=== PATIENT | female | born 1945 | race Caucasian/White ===

== ENCOUNTER 2017-07-22 11:51 | Inpatient (IN) | payer MEDICARE ==
[~2017-07-22] VITALS: Ht 160 cm; Wt 78.4 kg
[2017-07-22 11:57] VITALS: BP 147/85; PULSE 68; RESP 18; TEMP 98.5; O2SAT 100
[2017-07-22] MEDS ORDERED: SODIUM CHLOR 0.9% 1000 ML INJ 1,000 ML IV ONE (12:00)
[2017-07-22] MEDS ORDERED: SODIUM CHLORIDE 0.9% FLUSH 10 ML FLUSH IV FLUSH PRN ×2 (12:00→15:30)
[2017-07-22] MEDS ORDERED: PROZ20CA11 PO (12:00)
[2017-07-22] MEDS ORDERED: HYDR25TA5 PO (12:08)
[2017-07-22] MEDS ORDERED: METF500T PO (12:08)
[2017-07-22] MEDS ORDERED: IBUP-1129 PO (12:08)
[2017-07-22] MEDS ORDERED: MULTTAB67 PO (12:08)
[2017-07-22] MEDS ORDERED: PRAV20TA2 PO (12:20)
[2017-07-22] MEDS ORDERED: TRAZ100T10 PO (12:20)
[2017-07-22 12:39] LABS: AUTOMATED NEUTROPHIL # 3.5 TH/MM3 (1.8-7.7); BASOPHIL % 0.9 % (0.0-2.0); EOSINOPHIL # 0.1 TH/MM3 (0-0.4); EOSINOPHIL % 2.6 % (0.0-4.0); HEMATOCRIT 34.5 % (35.0-46.0); HEMO FLAGS DIFF FINAL; LYMPHOCYTE # 0.9 TH/MM3 (1.0-4.8); MEAN CELL VOLUME 79.4 FL (80.0-100.0); MEAN CORPUSCULAR HEMOGLOBIN 25.4 PG (27.0-34.0); MONO % 5.3 % (0.0-8.0); NEUT % 71.2 % (16.0-70.0); PLATELET COUNT 194 TH/MM3 (150-450); RED BLOOD COUNT 4.34 MIL/MM3 (4.00-5.30); RED CELL DISTRIBUTION WIDTH 12.6 % (11.6-17.2); WHITE BLOOD COUNT 4.7 TH/MM3 (4.0-11.0)
[2017-07-22 12:46] LABS: CHLORIDE 103 MEQ/L (98-107); POTASSIUM 3.3 MEQ/L (3.5-5.1); SODIUM (NA) 138 MEQ/L (136-145)
[2017-07-22 12:50] LABS: ANION GAP 8 MEQ/L (5-15); BICARBONATE 27.1 MEQ/L (21.0-32.0); BLOOD UREA NITROGEN 25 MG/DL (7-18)
[2017-07-22 12:52] LABS: APTT (PATIENT) 22.4 SEC (24.3-30.1); PROTHROMBIN TIME - PATIENT 10.6 SEC (9.8-11.6)
[2017-07-22 12:53] LABS: ALCOHOL LESS THAN 3 MG/DL (0-5); ALT (GPT) 22 U/L (10-53); AST (GOT) 25 U/L (15-37); GLOMERULAR FILTRATION RATE 37 ML/MIN (>89)
[2017-07-22 12:55] LABS: TOTAL BILIRUBIN ADULT 0.3 MG/DL (0.2-1.0)
[2017-07-22 12:56] LABS: ALKALINE PHOSPHATASE 69 U/L (45-117)
--- NOTE | 2017-07-22 12:56 | RADRPT ---
EXAM DATE/TIME: 07/22/2017 12:34 [facility] COMPARISON: No previous studies available for comparison. INDICATIONS : Fall. RADIATION DOSE: 58.57 CTDIvol (mGy) MEDICAL HISTORY : Hypertension. SURGICAL HISTORY : Cholecystectomy. Appendectomy.Colon resection.Breast reduction ENCOUNTER: Initial ACUITY: 1 day PAIN SCALE: 5/10 LOCATION: cranial TECHNIQUE: Multiple contiguous axial images were obtained of the head. Using automated exposure control and adj ustment of the mA and/or kV according to patient size, radiation dose was kept as low as reasonably a chievable to obtain optimal diagnostic quality images. DICOM format image data is available electro nically for review and comparison. FINDINGS: Mild diffuse cerebral atrophy is noted. There is a left posterior parietal parafalcine calcified extr a-axial mass measuring 1.8 x 0.9 cm consistent with probable calcified meningioma. No acute infarct, acute hemorrhage, midline shift or extra-axial fluid collections are noted. Minimal periventricular w bianca matter small vessel ischemic changes are noted bilaterally. Minimal mucosal thickening is noted within the maxillary sinuses bilaterally. No skull fracture is noted. CONCLUSION: 1. No acute infarct, acute hemorrhage, midline shift or extra-axial fluid collections. 2. Minimal periventricular white matter small vessel ischemic changes bilaterally. 3. Mild cerebral atrophy. 4. Left posterior parietal parafalcine calcified extra-axial mass is a 1.8 x 0.9 cm consistent with p robable calcified meningioma. 5. Minimal mucosal thickening within the maxillary sinuses bilaterally. Moises Bee MD on July 22, 2017 at 12:50 Board Certified Radiologist. This report was verified electronically.
--- NOTE | 2017-07-22 13:13 | RADRPT ---
EXAM DATE/TIME: 07/22/2017 12:34 [facility] COMPARISON: No previous studies available for comparison. INDICATIONS : Fall. RADIATION DOSE: 25.81 CTDIvol (mGy) MEDICAL HISTORY : Hypertension. SURGICAL HISTORY : Appendectomy. Cholecystectomy.Colon resection.Breast reduction, recent elbow surgery for fx ENCOUNTER: Initial ACUITY: 1 day PAIN SCALE: 4/10 LOCATION: neck TECHNIQUE: Volumetric scanning of the cervical spine was performed. Multiplanar reconstructions in the sagittal, coronal and oblique axial planes were performed. Using automated exposure control and adjustment o f the mA and/or kV according to patient size, radiation dose was kept as low as reasonably achievable to obtain optimal diagnostic quality images. DICOM format image data is available electronically f or review and comparison. FINDINGS: There is no acute fracture or prevertebral soft tissue swelling. Cervical spondylosis is noted from C 3-T1 and is most significant at C6-7. Mild spinal stenosis is noted at C6-7. Moderate bilateral fabiana inal narrowing is noted at C6-7 and C5-6. Moderate left foraminal narrowing and mild right neuroforam inal narrowing is noted at C3-4. Mild bilateral foraminal narrowing is noted at C4-5. The bony relati onship and alignment between C1 and C2 is well maintained. CONCLUSION: 1. No acute fracture or prevertebral soft tissue swelling. 2. Mild spinal stenosis and moderate bilateral foraminal narrowing at C6-7. 3. Moderate foraminal narrowing at C5-6, moderate left neural foraminal narrowing and mild right neur al foraminal narrowing at C3-4, and mild bilateral foraminal narrowing at C4-5. 4. Diffuse cervical spondylosis as described above. Moises Bee MD on July 22, 2017 at 13:04 Board Certified Radiologist. This report was verified electronically.
[2017-07-22 13:18] VITALS: BP 135/73; PULSE 68; RESP 18; O2SAT 98
--- NOTE | 2017-07-22 13:19 | RADRPT ---
EXAM DATE/TIME: 07/22/2017 12:46 [facility] COMPARISON: No previous studies available for comparison. INDICATIONS : Fell this am, pain and swelling right ankle MEDICAL HISTORY : Hypertension. SURGICAL HISTORY : Appendectomy. Cholecystectomy. Colon resection. elbow ENCOUNTER: Initial ACUITY: 1 day PAIN SCORE: 5/10 LOCATION: Right ankle FINDINGS: There is an oblique lateral malleolar fracture with subtle lateral displacement of the distal fragmen t. Talar dome is intact. Remaining osseous structures are intact. There is soft tissue swelling about the ankle. CONCLUSION: 1. Minimally displaced lateral malleolar fracture. Marco A Aguila MD on July 22, 2017 at 13:16 Board Certified Radiologist. This report was verified electronically.
--- NOTE | 2017-07-22 13:21 | RADRPT ---
EXAM DATE/TIME: 07/22/2017 12:49 [facility] COMPARISON: No previous studies available for comparison. INDICATIONS : Fell this am. has pain and swelling left ankle MEDICAL HISTORY : Hypertension. SURGICAL HISTORY : Colon resection. Cholecystectomy. Appendectomy. elbow ENCOUNTER: Initial ACUITY: 1 day PAIN SCORE: 5/10 LOCATION: Left ankle FINDINGS: There is a nondisplaced vertically oriented medial malleolar fracture extends to the articular surfac e. Talar dome is intact. Remaining osseous structures are intact. There is soft tissue swelling about the ankle. CONCLUSION: 1. Nondisplaced medial malleolar fracture, as above. Marco A Aguila MD on July 22, 2017 at 13:17 Board Certified Radiologist. This report was verified electronically.
[2017-07-22 13:40] LABS: BLOOD, URINE NEG (NEG); GLUCOSE,URINE NEG (NEG); KETONE, URINE NEG (NEG); NITRITE,URINE NEG (NEG); PH, URINE 5.5 (5.0-8.5)
[2017-07-22 13:43] LABS: METHOD OF COLLECTION CATH; URINE COLOR STRAW (YELLW/STRAW)
[2017-07-22] MEDS ORDERED: BACL10TA PO (13:45)
[2017-07-22 13:46] LABS: COMMENT (UR) CATH-CULT NOT IND; COMMENT2 (UR) MUCOUS PRESENT; CULTURE IF INDICATED CATH CULTURE NOT IND; SQUAMOUS EPITHELIAL CELL URINE 0-5 /hpf (0-5); TRANSITIONAL EPI CELLS, URINE 0-5 /hpf; WBC, URINE 0-2 /hpf (0-5)
--- NOTE | 2017-07-22 14:13 | RADRPT ---
EXAM DATE/TIME: 07/22/2017 14:00 [facility] COMPARISON: No previous studies available for comparison. INDICATIONS : Fell this am, left foot pain, swelling MEDICAL HISTORY : Hypertension. SURGICAL HISTORY : Appendectomy. Colon resection. Cholecystectomy. ENCOUNTER: Initial ACUITY: 1 day PAIN SCORE: 5/10 LOCATION: Left foot FINDINGS: Slightly comminuted mildly displaced fractures of the fourth and fifth mid to distal metatarsals with out apparent intra-articular extension. There is some angulation of the distal fourth metatarsal frag ment. Remaining osseous structures appear intact. Joint spaces are maintained. Soft tissue prominence overlying the forefoot region. CONCLUSION: 1. Comminuted mildly displaced fractures of the fourth and fifth metatarsals, as above. Marco A Aguila MD on July 22, 2017 at 14:10 Board Certified Radiologist. This report was verified electronically.
--- NOTE | 2017-07-22 14:16 | PD ---
HPI Chief Complaint: Altered Mental Status Time Seen by Provider: 11:55 Travel History International Travel<30 days: No Contact w/Intl Traveler<30days: No Traveled to known affect area: No History of Present Illness HPI Patient is a 72-year-old female presents emergency department after a fall at home. The patient has apparently been falling fairly frequently, 2 weeks ago she fell in [place] injuring her right elbow, this required operative intervention and she is in a brace this time, her states that when she got up to go to the bathroom today he is not clear if she slipped or if she was weak and her legs gave out on him up on the floor. The patient also complaining of some left ankle swelling, she states she thinks this happened during the fall, she is mildly confused acting almost as if intoxicated. Her states that she's also been having some tremors which he describes as almost clonic jerks. He states she has no history of dementia has been alert and awake and oriented nearly normal mental status since then. However after he spent some time in the room he also concurs that she is acting almost intoxicated. No fevers no cough no congestion no chest pain back pain abdominal pain. She has had Dr. Jimenez following her in [place]. [facility] Past Medical History Diabetes: Yes Patient Takes Glucophage: Yes Diminished Hearing: No Hypertension: Yes Influenza Vaccination: Yes ?: Not Past Surgical History Abdominal Surgery: Yes (COLON RESECTION) Appendectomy: Yes Cholecystectomy: Yes Hysterectomy: Yes Tonsillectomy: Yes Other Surgery: Yes (BREAST REDUCTION) Social History Alcohol Use: Yes Tobacco Use: No Allergies-Medications (Allergen,Severity, Reaction): Coded Allergies: lisinopril (Verified Allergy, Severe, SWELLING, 07/22/17) Reported Meds & Prescriptions Reported Meds & Active Scripts Active Reported Baclofen 10 Mg Tab 10 Mg PO HS Pravastatin 20 Mg Tab 20 Mg PO DAILY Trazodone (Trazodone HCl) 100 Mg Tablet 100 Mg PO HS Multiple Vitamin 1 Tab 1 Tab PO DAILY Motrin Ib (Ibuprofen) 200 Mg Tablet 600 Mg PO DIRECTED Hydrochlorothiazide 25 Mg Tab 25 Mg PO DAILY Metformin (Metformin HCl) 500 Mg Tab 500 Mg PO BIDPC Prozac (Fluoxetine HCl) 20 Mg Cap 20 Mg PO DAILY Review of Systems Except as stated in HPI: all other systems reviewed are Neg Physical Exam Narrative GENERAL: Well-developed well-nourished no obvious distress, acting almost intoxicated with mild confusion. She is alert and awake and oriented. SKIN: Focused skin assessment warm/dry. HEAD: Atraumatic. Normocephalic. EYES: Pupils equal and round. No scleral icterus. No injection or drainage. ENT: No nasal bleeding or discharge. Mucous membranes pink and dry. NECK: Trachea midline. No JVD. CARDIOVASCULAR: Regular rate and rhythm. No murmur appreciated. RESPIRATORY: No accessory muscle use. Clear to auscultation. Breath sounds equal bilaterally. GASTROINTESTINAL: Abdomen soft, non-tender, nondistended. Hepatic and splenic margins not palpable. MUSCULOSKELETAL: No obvious deformities. No midline CT or L-spine tenderness, there is bruising and swelling of the lateral malleolus of the left ankle. Mildly tender to palpation over the medial malleolus however. There is also some swelling and some healing bruising to the lateral malleolus of the right ankle. Her right upper extremity has a dorsal surgical scar probably 20 cm long starting over the humerus over the elbow and down into the forearm, clean dry and intact. She is also in a brace this extremity. NEUROLOGICAL: Awake and alert. No obvious cranial nerve deficits. Motor grossly within normal limits. Normal speech. PSYCHIATRIC: Appropriate mood and affect; insight and judgment normal. Data Data Last Documented VS Vital Signs Date Time Temp Pulse Resp B/P (MAP) Pulse Ox O2 Delivery O2 Flow Rate FiO2 07/22/17 13:18 68 18 135/73 (93) 98 Room Air 07/22/17 11:57 98.5 Orders Orders Electrocardiogram (07/22/17 11:55) Complete Blood Count With Diff (07/22/17 11:55) Comprehensive Metabolic Panel (07/22/17 11:55) Prothrombin Time / Inr (Pt) (07/22/17 11:55) Act Partial Throm Time (Ptt) (07/22/17 11:55) Troponin I (07/22/17 11:55) Thyroid Stimulating Hormone (07/22/17 11:55) Urinalysis - C+S If Indicated (07/22/17 11:55) Ct Brain W/O Iv Contrast(Rout) (07/22/17 11:55) Ecg Monitoring (07/22/17 11:55) Iv Access Insert/Monitor (07/22/17 11:55) Oximetry (07/22/17 11:55) Sodium Chloride 0.9% Flush (Ns Flush) (07/22/17 12:00) Alcohol (Ethanol) (07/22/17 11:55) Ankle, Complete ([id number]) (07/22/17 ) Ct Cerv Spine W/O Contrast (07/22/17 ) Ankle, Complete ([id number]) (07/22/17 ) Sodium Chlor 0.9% 1000 Ml Inj (Ns 1000 M (07/22/17 12:00) Foot, Complete ([id number]) (07/22/17 ) Urinary Catheter Management [id number] (07/22/17 14:22) Consult Orthopedic (07/22/17 ) Admit Order (Ed Use Only) (07/22/17 ) Support Splint (07/22/17 14:38) Labs Laboratory Tests Test 07/22/17 12:30 07/22/17 13:30 White Blood Count 4.7 TH/MM3 Red Blood Count 4.34 MIL/MM3 Hemoglobin 11.0 GM/DL Hematocrit 34.5 % Mean Corpuscular Volume 79.4 FL Mean Corpuscular Hemoglobin 25.4 PG Mean Corpuscular Hemoglobin Concent 32.0 % Red Cell Distribution Width 12.6 % Platelet Count 194 TH/MM3 Mean Platelet Volume 7.9 FL Neutrophils (%) (Auto) 71.2 % Lymphocytes (%) (Auto) 20.0 % Monocytes (%) (Auto) 5.3 % Eosinophils (%) (Auto) 2.6 % Basophils (%) (Auto) 0.9 % Neutrophils # (Auto) 3.5 TH/MM3 Lymphocytes # (Auto) 0.9 TH/MM3 Monocytes # (Auto) 0.2 TH/MM3 Eosinophils # (Auto) 0.1 TH/MM3 Basophils # (Auto) 0.0 TH/MM3 CBC Comment DIFF FINAL Differential Comment Prothrombin Time 10.6 SEC Prothromb Time International Ratio 1.0 RATIO Activated Partial Thromboplast Time 22.4 SEC Blood Urea Nitrogen 25 MG/DL Creatinine 1.40 MG/DL Random Glucose 222 MG/DL Total Protein 6.9 GM/DL Albumin 3.3 GM/DL Calcium Level 8.6 MG/DL Alkaline Phosphatase 69 U/L Aspartate Amino Transf (AST/SGOT) 25 U/L Alanine Aminotransferase (ALT/SGPT) 22 U/L Total Bilirubin 0.3 MG/DL Sodium Level 138 MEQ/L Potassium Level 3.3 MEQ/L Chloride Level 103 MEQ/L Carbon Dioxide Level 27.1 MEQ/L Anion Gap 8 MEQ/L Estimat Glomerular Filtration Rate 37 ML/MIN Troponin I LESS THAN 0.02 NG/ML Thyroid Stimulating Hormone 3rd Gen 0.690 uIU/ML Ethyl Alcohol Level LESS THAN 3 MG/DL Urine Collection Type CATH Urine Color STRAW Urine Turbidity CLEAR Urine pH 5.5 Urine Specific [place] 1.015 Urine Protein NEG mg/dL Urine Glucose (UA) NEG mg/dL Urine Ketones NEG mg/dL Urine Occult Blood NEG Urine Nitrite NEG Urine Bilirubin NEG Urine Leukocyte Esterase NEG Urine WBC 0-2 /hpf Urine Squamous Epithelial Cells 0-5 /hpf Urine Transitional Epithelial Cells 0-5 /hpf Urine Amorphous Sediment FEW Microscopic Urinalysis Comment CATH-CULT NOT IND Urine Collection Time 1330 MDM Medical Decision Making Medical Screen Exam Complete: Yes Emergency Medical Condition: Yes Differential Diagnosis Fall, head injury, neck injury, ankle fracture, foot fracture, colonic tremor, hyponatremia, hypokalemia, dehydration. Narrative Course Patient roomed in emergency department, occasionally demonstrating clonic jerk all 4 extremities, alert and awake and oriented, nonfocal otherwise. X-rays of her ankles demonstrated bilateral ankle fractures, the left ankle fractures associated with 2 metacarpal fractures in her foot. Awaiting a page from orthopedics to decide if these ankle fractures or operative or not, the patient will be admitted to the hospital for possible rehabilitation and maybe even rehabilitation placement. Patient discussed with Dr. Mann through nursing staff in the operating room, he recommends nothing by mouth after midnight transferred [facility] for operative correction. Patient discussed with Dr. Peña for admission. Diagnosis Primary Impression: Altered mental status Additional Impressions: Ankle fracture, left Ankle fracture, right Foot fracture, left Admitting Information Admitting Physician Requests: Admit Condition: Stable Moises Reynaga MD Jul 22, 2017 14:15
[2017-07-22] MEDS ORDERED: DEXTROSE 50% IN WATER 50 ML VIAL(D50) IV PUSH PRN (15:30)
[2017-07-22] MEDS ORDERED: ACETAMINOPHEN 325 MG TAB PO PRN (15:30)
[2017-07-22] MEDS ORDERED: GLUCAGON 1 MG/ML VIAL OTHER PRN (15:30)
[2017-07-22] MEDS ORDERED: ONDANSETRON HCL 4 MG/2 ML VIAL IVP PRN (15:30)
[2017-07-22] MEDS ORDERED: NALOXONE HCL 0.4 MG/ML AMP IV PUSH PRN (15:30)
[2017-07-22 15:31] VITALS: BP 130/60; PULSE 68; RESP 18; O2SAT 98
--- NOTE | 2017-07-22 15:33 | HHI.HP ---
[facility] Joce Kennedy MD Admission Diagnosis Altered Mental Status, Bialteral Ankle fractures. Diagnoses: (1) Multiple falls Diagnosis: Principal (2) Ankle fracture, right Diagnosis: Secondary (3) Ankle fracture, left Diagnosis: Secondary Chief Complaint: Frequent falls, generalized weakness and bilateral ankle fractures Travel History International Travel<30 Days: No Contact w/Intl Traveler <30 Da: No Traveled to Known Affected Are: No History of Present Illness Written by Earnestine Verde, acting as scribe for Dr. Peña on 07/22/17 at 15:09. Mrs. Aden is a 72-year-old female patient with a known medical history of DM and hypertension who presented to the ED after frequent falls at home. Patient reports that she fell a couple weeks ago in [place] after tripping in some grass , she injured her right elbow and underwent surgical intervention with a current brace in place. States she has been weak since her fall a couple weeks back and her has been assisting her with her ADLs. Patient states that this morning she also fell after trying to get up out of bed alone. It is unclear if she slipped or if her legs gave out on her. Her helped her to her feet and she then again fell while in the bathroom. She does remember hitting her head. Denies any LOC. She has been having some jerking and tremors lately with some confusion and also frequently dropping things. Denies any associated dizziness, lightheadedness, blurry vision, diplopia, headaches, one- sided weakness or seizures. Denies any recent illness including fever, chills, shortness of breath, abdominal pain, nausea, vomiting, diarrhea or dysuria. PCP is Dr. Cárdenas. Review of Systems Constitutional: DENIES: Fever, Chills Eyes: DENIES: Blurred vision, Diplopia, Vision loss Respiratory: DENIES: Cough, Sputum production, Shortness of breath Cardiovascular: DENIES: Chest pain, Palpitations Gastrointestinal: DENIES: Abdominal pain, Black stools, Bloody stools, Constipation, Diarrhea, Nausea, Vomiting Genitourinary: COMPLAINS OF: Urinary frequency Integumentary: DENIES: Rash Hematologic/lymphatic: COMPLAINS OF: Bruising Neurologic: COMPLAINS OF: Localized weakness, Poor Balance, DENIES: Headache Psychiatric: COMPLAINS OF: Anxiety Except as stated in HPI: all other systems reviewed are Neg Past Family Social History Past Medical History DM Hypertension Frequent UTIs CKD Stage 3 Past Surgical History Appendectomy Cholecystectomy Colon resection Hysterectomy Cervical neck surgery, bone spurs Tonsillectomy Breast reduction Reported Medications Active Reported Baclofen 10 Mg Tab 10 Mg PO HS Pravastatin 20 Mg Tab 20 Mg PO DAILY Trazodone (Trazodone HCl) 100 Mg Tablet 100 Mg PO HS Multiple Vitamin 1 Tab 1 Tab PO DAILY Motrin Ib (Ibuprofen) 200 Mg Tablet 600 Mg PO DIRECTED Hydrochlorothiazide 25 Mg Tab 25 Mg PO DAILY Metformin (Metformin HCl) 500 Mg Tab 500 Mg PO BIDPC Prozac (Fluoxetine HCl) 20 Mg Cap 20 Mg PO DAILY Allergies: Coded Allergies: lisinopril (Verified Allergy, Severe, SWELLING, 07/22/17) Active Ordered Medications Current Medications Medications (Trade) Dose Ordered Sig/Adrien Route Start Time Stop Time Status Last Admin (NS Flush) 2 ml UNSCH PRN IV FLUSH 07/22/17 12:00 Family History Paternal medical history significant for lung cancer. Social History Denies any tobacco use. Admits to occasional alcohol use. Denies any illicit drug use. Physical Exam Vital Signs Vital Signs Date Time Temp Pulse Resp B/P (MAP) Pulse Ox O2 Delivery O2 Flow Rate FiO2 07/22/17 13:18 68 18 135/73 (93) 98 Room Air 07/22/17 12:00 68 18 100 07/22/17 11:57 98.5 68 18 147/85 (105) 100 Physical Exam GENERAL: This is a well-nourished, well-developed female patient lying in bed with ankle pain and active twitching. SKIN: No rashes, ecchymoses or lesions. Warm and dry. HEAD: Atraumatic. Normocephalic. Pupils equal round and reactive. Extraocular motions intact. No scleral icterus. No injection or drainage. Nose without bleeding. Throat without erythema, tonsillar hypertrophy or exudate. Uvula midline. Airway patent. NECK: Trachea midline. No JVD. Supple. CARDIOVASCULAR: Regular rate and rhythm without murmurs, gallops, or rubs. RESPIRATORY: Clear to auscultation. Breath sounds equal bilaterally. No wheezes , rales, or rhonchi. GASTROINTESTINAL: Abdomen soft, non-tender, nondistended. No guarding. MUSCULOSKELETAL: Extremities without clubbing, cyanosis. EXTREMITIES: Bilateral ankle swelling and ecchymosis. Pain to palpation. Bilateral pedal and DP pulses present 2+. NEUROLOGICAL: Awake and alert. Cranial nerves II through XII intact. Motor and sensory grossly within normal limits. Five out of 5 muscle strength in all muscle groups. Normal speech. Laboratory Laboratory Tests Test 07/22/17 12:30 07/22/17 13:30 White Blood Count 4.7 Red Blood Count 4.34 Hemoglobin 11.0 Hematocrit 34.5 Mean Corpuscular Volume 79.4 Mean Corpuscular Hemoglobin 25.4 Mean Corpuscular Hemoglobin Concent 32.0 Red Cell Distribution Width 12.6 Platelet Count 194 Mean Platelet Volume 7.9 Neutrophils (%) (Auto) 71.2 Lymphocytes (%) (Auto) 20.0 Monocytes (%) (Auto) 5.3 Eosinophils (%) (Auto) 2.6 Basophils (%) (Auto) 0.9 Neutrophils # (Auto) 3.5 Lymphocytes # (Auto) 0.9 Monocytes # (Auto) 0.2 Eosinophils # (Auto) 0.1 Basophils # (Auto) 0.0 CBC Comment DIFF FINAL Differential Comment Prothrombin Time 10.6 Prothromb Time International Ratio 1.0 Activated Partial Thromboplast Time 22.4 Blood Urea Nitrogen 25 Creatinine 1.40 Random Glucose 222 Total Protein 6.9 Albumin 3.3 Calcium Level 8.6 Alkaline Phosphatase 69 Aspartate Amino Transf (AST/SGOT) 25 Alanine Aminotransferase (ALT/SGPT) 22 Total Bilirubin 0.3 Sodium Level 138 Potassium Level 3.3 Chloride Level 103 Carbon Dioxide Level 27.1 Anion Gap 8 Estimat Glomerular Filtration Rate 37 Troponin I LESS THAN 0.02 Thyroid Stimulating Hormone 3rd Gen 0.690 Ethyl Alcohol Level LESS THAN 3 Urine Collection Type CATH Urine Color STRAW Urine Turbidity CLEAR Urine pH 5.5 Urine Specific [place] 1.015 Urine Protein NEG Urine Glucose (UA) NEG Urine Ketones NEG Urine Occult Blood NEG Urine Nitrite NEG Urine Bilirubin NEG Urine Leukocyte Esterase NEG Urine WBC 0-2 Urine Squamous Epithelial Cells 0-5 Urine Transitional Epithelial Cells 0-5 Urine Amorphous Sediment FEW Microscopic Urinalysis Comment CATH-CULT NOT IND Urine Collection Time 1330 Result Diagram: 07/22/17 1230 07/22/17 1230 Imaging Last Impressions Head CT 07/22/17 1155 Signed Impressions: Service Date/Time: Saturday, July 22, 2017 12:34 - CONCLUSION: 1. No acute infarct, acute hemorrhage, midline shift or extra-axial fluid collections. 2. Minimal periventricular white matter small vessel ischemic changes bilaterally. 3. Mild cerebral atrophy. 4. Left posterior parietal parafalcine calcified extra-axial mass is a 1.8 x 0.9 cm consistent with probable calcified meningioma. 5. Minimal mucosal thickening within the maxillary sinuses bilaterally. Moises Bee MD Foot X-Ray 07/22/17 0000 Signed Impressions: Service Date/Time: Saturday, July 22, 2017 14:00 - CONCLUSION: 1. Comminuted mildly displaced fractures of the fourth and fifth metatarsals, as above. Marco A Aguila MD Cervical Spine CT 07/22/17 0000 Signed Impressions: Service Date/Time: Saturday, July 22, 2017 12:34 - CONCLUSION: 1. No acute fracture or prevertebral soft tissue swelling. 2. Mild spinal stenosis and moderate bilateral foraminal narrowing at C6-7. 3. Moderate foraminal narrowing at C5-6, moderate left neural foraminal narrowing and mild right neural foraminal narrowing at C3-4, and mild bilateral foraminal narrowing at C4-5. 4. Diffuse cervical spondylosis as described above. Moises Bee MD Ankle X-Ray 07/22/17 0000 Signed Impressions: Service Date/Time: Saturday, July 22, 2017 12:46 - CONCLUSION: 1. Minimally displaced lateral malleolar fracture. Marco A Aguila MD Septic Shock Reassessment Septic shock perfusion: reassessment completed Caprini VTE Risk Assessment Caprini VTE Risk Assessment: Mod/High Risk (score >= 2) Caprini Risk Assessment Model Point Value = 1 Point Value = 2 Point Value = 3 Point Value = 5 Age 41-60 Minor surgery BMI > 25 kg/m2 Swollen legs Varicose veins or History of unexplained or recurrent spontaneous Oral contraceptives or hormone replacement Sepsis (< 1 month) Serious lung disease, including pneumonia (< 1 month) Abnormal pulmonary function Acute myocardial infarction Congestive heart failure (< 1 month) History of inflammatory bowel disease Medical patient at bed rest Age 61-74 Arthroscopic surgery Major open surgery (> 45 min) Laparoscopic surgery (> 45 min) Malignancy Confined to bed (> 72 hours) Immobilizing plaster cast Central venous access Age >= 75 History of VTE Family history of VTE Factor V Leiden Prothrombin [id number] Lupus anticoagulant Anticardiolipin antibodies Elevated serum homocysteine Heparin-induced thrombocytopenia Other congenital or acquired thrombophilia Stroke (< 1 month) Elective arthroplasty Hip, pelvis, or leg fracture Acute spinal cord injury (< 1 month) Prophylaxis Regimen Total Risk Factor Score Risk Level Prophylaxis Regimen 0-1 Low Early ambulation 2 Moderate Order ONE of the following: *Sequential Compression Device (SCD) *Heparin 5000 units SQ BID 3-4 Higher Order ONE of the following medications: *Heparin 5000 units SQ TID *Enoxaparin/Lovenox 40 mg SQ daily (WT < 150 kg, CrCl > 30 mL/min) *Enoxaparin/Lovenox 30 mg SQ daily (WT < 150 kg, CrCl > 10-29 mL/min) *Enoxaparin/Lovenox 30 mg SQ BID (WT < 150 kg, CrCl > 30 mL/min) AND/OR *Sequential Compression Device (SCD) 5 or more Highest Order ONE of the following medications: *Heparin 5000 units SQ TID (Preferred with Epidurals) *Enoxaparin/Lovenox 40 mg SQ daily (WT < 150 kg, CrCl > 30 mL/min) *Enoxaparin/Lovenox 30 mg SQ daily (WT < 150 kg, CrCl > 10-29 mL/min) *Enoxaparin/Lovenox 30 mg SQ BID (WT < 150 kg, CrCl > 30 mL/min) AND *Sequential Compression Device (SCD) Assessment and Plan Problem List: (1) Multiple falls ICD Code: R29.6 - Repeated falls Plan: Unknown cause rule out seizures Head CT reviewed showing no acute infarct or hemorrhage. Minimal white matter small vessel ischemic changes bilaterally. Left posterior parietal parafalcine calcified extra-axial mass is a 1.8x0.9 cm, probably calcified meningioma. Will order EEG to rule out seizures. Continue neuro checks. Activity order bed rest. Will check a TSH, vitamin B12 and D level. Follow. Will continue cardiac telemetry to monitor for any arrhythmias. (2) Bilateral ankle fractures ICD Code: S82.891A - Other fracture of right lower leg, initial encounter for closed fracture; S82.892A - Other fracture of left lower leg, initial encounter for closed fracture Plan: Secondary to falls. Orthopedic surgeon has been consulted and patient will be transferred to the [facility] to undergo operation. NPO after midnight. Patient stable at this time and agreeable to the plan. (3) Type 2 diabetes mellitus ICD Code: E11.9 - Type 2 diabetes mellitus without complications Plan: ACCU checks ACHS. sliding scale insulin, cover as needed. Follow trends. (4) Hypokalemia ICD Code: E87.6 - Hypokalemia Plan: Potassium 3.3 on presentation. Replete. Follow BMP. (5) Chronic kidney disease ICD Code: N18.9 - Chronic kidney disease, unspecified Plan: History of CKD stage III Creatinine 1.4 on presentation. Monitor intake and output. (6) Hypertension ICD Code: I10 - Essential (primary) hypertension Plan: Continue home HCTZ. Monitor BP trends. DVT Prophylaxis: SCDs. Code Status DNR Discussed Condition With Patient and Physician Certification 2 Midnight Certification Type: Admission for Inpatient Services Order for Inpatient Services The services are ordered in accordance with Medicare regulations or non- Medicare payer requirements, as applicable. In the case of services not specified as inpatient-only, they are appropriately provided as inpatient services in accordance with the 2-midnight benchmark. Estimated LOS (days): 3 3 days is the estimated time the patient will need to remain in the hospital, assuming treatment plan goals are met and no additional complications. Post-Hospital Plan: Not yet determined Medical Decision Making Impression and Plan This note was transcribed by sherin [[email or web address]]. I, Dr. Indigo Peña personally performed the history, physical exam, and medical decision making; and confirmed the accuracy of the information in the transcribed note. d/w patient and spouse at bedside FROM except right arm which is in a sling Authenticated by Dr. Indigo Peña on 07/22/17 at 15:54. Earnestine Verde Jul 22, 2017 15:32 Indigo Peña MD Jul 22, 2017 15:55
--- NOTE | 2017-07-22 15:43 | EKG ---
Date Performed: 07/22/2017 Time Performed: 13:02:38 PTAGE: 72 years EKG: Sinus rhythm WITH SINUS ARRHYTHMIA, LEFT AXIS DEVIATION, RIGHT BUNDLE BRANCH BLOCK ABNORMAL ECG NO PREVIOUS TRACING DOCTOR: Anil Rod Interpretating Date/Time 07/22/2017 15:42:17
[2017-07-22] MEDS: HYDROCHLOROTHIAZIDE 25 MG TAB PO SCH (15:44)
[2017-07-22] MEDS: SODIUM CHLOR 0.9% 1000 ML INJ 1,000 ML IV SCH (15:44)
[2017-07-22] MEDS: FLUoxetine HCL 20 MG CAP PO SCH (15:44)
[2017-07-22] MEDS ORDERED: POTASSIUM CHLORIDE 10 MEQ CONTROLLED RELEASE TAB PO ONE (16:00)
[2017-07-22] MEDS: INSULIN ASPART SUPPLEMENTAL SCALE SQ SCH ×2 (16:34→20:48)
[2017-07-22 17:10] VITALS: BP 140/77; PULSE 70; RESP 18; O2SAT 98
[2017-07-22] MEDS ORDERED: MORPHINE SULFATE 2 MG/ML INJ IV PUSH ONE (18:00)
[2017-07-22 20:00] VITALS: BP 139/59; PULSE 71; RESP 17; TEMP 98.4; O2SAT 98
[2017-07-22] MEDS: DOCUSATE SODIUM 50 MG/SENNA 8.6 MG TAB PO SCH (20:48)
[2017-07-22] MEDS: SODIUM CHLORIDE 0.9% FLUSH 10 ML FLUSH IV FLUSH SCH (20:49)
--- NOTE | 2017-07-22 21:53 | RADRPT ---
EXAM DATE/TIME: 07/22/2017 21:18 [facility] COMPARISON: ANKLE LEFT COMPLETE ([id number]), July 22, 2017, 12:49. INDICATIONS : Post reduction. MEDICAL HISTORY : Hypertension. SURGICAL HISTORY : Appendectomy. Colon resection. Cholecystectomy. ENCOUNTER: Initial ACUITY: 1 day PAIN SCORE: 0/10 LOCATION: Left ankle FINDINGS: Cast overlies a relatively nondisplaced fracture of the medial malleolus. Ankle mortise intact. No di slocation. CONCLUSION: 1. Cast overlying relatively nondisplaced fracture of medial malleolus. Ankle mortise intact. Alex Loya MD on July 22, 2017 at 21:48 Board Certified Radiologist. This report was verified electronically.
--- NOTE | 2017-07-22 21:54 | RADRPT ---
EXAM DATE/TIME: 07/22/2017 21:10 [facility] COMPARISON: No previous studies available for comparison. INDICATIONS : Post reduction. MEDICAL HISTORY : Hypertension. SURGICAL HISTORY : Appendectomy. Colon resection. Cholecystectomy. ENCOUNTER: Initial ACUITY: 1 day PAIN SCORE: 0/10 LOCATION: Right ankle. FINDINGS: Cast overlies relatively nondisplaced lateral malleolar fracture. Ankle mortise intact. CONCLUSION: 1. Nondisplaced lateral malleolar fracture with overlying soft tissue swelling. Overlying cast. Alex Loya MD on July 22, 2017 at 21:51 Board Certified Radiologist. This report was verified electronically.
[2017-07-22] MEDS ORDERED: SODIUM CHLORID 0.9% 500 ML IV PRN (22:45)
[2017-07-22] MEDS ORDERED: POVIDONE IODINE 5% (ANTISEPSIS KIT) 4 APPLICATIONS EACH NARE PRN (22:45)
[2017-07-22] MEDS ORDERED: CHLORHEXIDINE GLUCONATE 2 % 1 PACK (2 CLOTHS) TOPICAL PRN (22:45)
[2017-07-22] MEDS ORDERED: LACTATED RINGER'S 1000 ML IV PRN (22:45)
[2017-07-23 00:03] VITALS: BP 121/56; PULSE 56; RESP 17; TEMP 98; O2SAT 99
[2017-07-23] MEDS: ACETAMINOPHEN/HYDROcodone 325 MG/5 MG TAB PO PRN ×3 (00:58→10:09)
[2017-07-23 04:03] VITALS: BP 107/62; PULSE 61; RESP 17; TEMP 98.3; O2SAT 98
[2017-07-23 06:35] LABS: AUTOMATED NEUTROPHIL # 3.3 TH/MM3 (1.8-7.7); BASOPHIL % 0.6 % (0.0-2.0); EOSINOPHIL # 0.1 TH/MM3 (0-0.4); HEMATOCRIT 31.5 % (35.0-46.0); HEMO FLAGS DIFF FINAL; LYMPH % 24.4 % (9.0-44.0); LYMPHOCYTE # 1.2 TH/MM3 (1.0-4.8); MEAN CELL VOLUME 80.7 FL (80.0-100.0); MEAN CORPUSCULAR HEMOGLOBIN 26.5 PG (27.0-34.0); MEAN CORPUSCULAR HGB CONC 32.8 % (32.0-36.0); MONO % 7.3 % (0.0-8.0); NEUT % 65.7 % (16.0-70.0); PLATELET COUNT 153 TH/MM3 (150-450); RED BLOOD COUNT 3.91 MIL/MM3 (4.00-5.30); RED CELL DISTRIBUTION WIDTH 13.5 % (11.6-17.2); WHITE BLOOD COUNT 5.1 TH/MM3 (4.0-11.0)
[2017-07-23 06:52] LABS: BICARBONATE 25.9 MEQ/L (21.0-32.0); POTASSIUM 3.2 MEQ/L (3.5-5.1)
--- NOTE | 2017-07-23 07:12 | PD.ORT.PN ---
Subjective Subjective Remarks Previous fracture to right elbow with ORIF in [place]. Dr. Jimenez is managing here locally postop. She has had multiple falls and fell at home with pain to both ankles and foot. Brought to the emergency room and is diagnosed with bilateral ankle fractures and metatarsal fractures. Objective Vitals Vital Signs Date Time Temp Pulse Resp B/P (MAP) Pulse Ox O2 Delivery O2 Flow Rate FiO2 07/23/17 04:03 98.3 61 17 107/62 (77) 98 07/23/17 00:03 98.0 56 17 121/56 (77) 99 07/22/17 20:00 98.4 71 17 139/59 (85) 98 07/22/17 18:07 07/22/17 17:10 70 18 140/77 (98) 98 Room Air 07/22/17 17:10 Room Air 07/22/17 15:32 68 07/22/17 15:31 68 18 130/60 (83) 98 Room Air 07/22/17 13:18 68 18 135/73 (93) 98 Room Air 07/22/17 12:00 68 18 100 07/22/17 11:57 98.5 68 18 147/85 (105) 100 I/O 07/22/17 07/22/17 07/22/17 07/23/17 07/23/17 07/23/17 07:00 15:00 23:00 07:00 15:00 23:00 Intake Total 1000 ml 240 ml 120 ml Output Total 1250 ml 350 ml Balance 1000 ml -1010 ml -230 ml Intake Oral 240 ml 120 ml IV Total 1000 ml Output Urine Total 1250 ml 350 ml # Voids 1 0 # Bowel Movements 0 0 Result Diagram: 07/23/17 0603 07/23/17 0608 Other Results Laboratory Tests Test 07/22/17 12:30 Prothromb Time International Ratio 1.0 RATIO Prothrombin Time 10.6 SEC (9.8-11.6) Imaging Last [address] 07/22/17 1155 Signed Impressions: Service Date/Time: Saturday, July 22, 2017 12:34 - CONCLUSION: 1. No acute infarct, acute hemorrhage, midline shift or extra-axial fluid collections. 2. Minimal periventricular white matter small vessel ischemic changes bilaterally. 3. Mild cerebral atrophy. 4. Left posterior parietal parafalcine calcified extra-axial mass is a 1.8 x 0.9 cm consistent with probable calcified meningioma. 5. Minimal mucosal thickening within the maxillary sinuses bilaterally. Moises Bee MD Foot X-Ray 07/22/17 0000 Signed Impressions: Service Date/Time: Saturday, July 22, 2017 14:00 - CONCLUSION: 1. Comminuted mildly displaced fractures of the fourth and fifth metatarsals, as above. Marco A Aguila MD Cervical Spine CT 07/22/17 0000 Signed Impressions: Service Date/Time: Saturday, July 22, 2017 12:34 - CONCLUSION: 1. No acute fracture or prevertebral soft tissue swelling. 2. Mild spinal stenosis and moderate bilateral foraminal narrowing at C6-7. 3. Moderate foraminal narrowing at C5-6, moderate left neural foraminal narrowing and mild right neural foraminal narrowing at C3-4, and mild bilateral foraminal narrowing at C4-5. 4. Diffuse cervical spondylosis as described above. Moises Bee MD Ankle X-Ray 07/22/17 0000 Signed Impressions: Service Date/Time: Saturday, July 22, 2017 21:10 - CONCLUSION: 1. Nondisplaced lateral malleolar fracture with overlying soft tissue swelling. Overlying cast. Alex Loya MD Ankle X-Ray 07/22/17 0000 Signed Impressions: Service Date/Time: Saturday, July 22, 2017 21:18 - CONCLUSION: 1. Cast overlying relatively nondisplaced fracture of medial malleolus. Ankle mortise intact. Alex Loya MD Ankle X-Ray 07/22/17 0000 Signed Impressions: Service Date/Time: Saturday, July 22, 2017 12:46 - CONCLUSION: 1. Minimally displaced lateral malleolar fracture. Marco A Aguila MD Ankle X-Ray 07/22/17 0000 Signed Impressions: Service Date/Time: Saturday, July 22, 2017 12:49 - CONCLUSION: 1. Nondisplaced medial malleolar fracture, as above. Marco A Aguila MD Last [address] 07/22/17 1155 Signed Impressions: Service Date/Time: Saturday, July 22, 2017 12:34 - CONCLUSION: 1. No acute infarct, acute hemorrhage, midline shift or extra-axial fluid collections. 2. Minimal periventricular white matter small vessel ischemic changes bilaterally. 3. Mild cerebral atrophy. 4. Left posterior parietal parafalcine calcified extra-axial mass is a 1.8 x 0.9 cm consistent with probable calcified meningioma. 5. Minimal mucosal thickening within the maxillary sinuses bilaterally. Moises Bee MD Objective Remarks Right upper extremity: Clean dry dressings intact with range of motion elbow brace and place. Distally intact sensation. She flexion of all fingers. Right lower extremity: No pain with hip or knee range of motion. Short leg splint in place intact sensation distally in all toes with good capillary refills Left lower extremity: No pain with hip or knee range of motion. Short leg splint place with intact sensation in all toes. Some tenderness with movement over fourth and fifth toes. Assessment & Plan Assessment and Plan Previous elbow fracture with surgery - nonweightbearing in range of motion elbow brace Right distal fibula fracture minimally displaced - maintain splint and nonweightbearing right lower extremity Left medial malleolus fracture nondisplaced, left fourth and fifth metatarsal fractures - conservative measures maintain splint nonweightbearing left lower extremity Due to nonweightbearing status on 3 extremities physical therapy will work on bed to chair transfers. Case management will need to look into rehabilitation placement Follow-up x-rays in 10-14 days need to be obtained to evaluate ankle and foot fractures. She may follow-up with Dr. Jimenez for bilateral ankles since she is already being managed by him for her elbow Rene Mendez Jr. Jul 23, 2017 07:12
[2017-07-23 07:48] VITALS: BP 120/67; PULSE 64; RESP 16; TEMP 98.1; O2SAT 96
[2017-07-23] MEDS: INSULIN ASPART SUPPLEMENTAL SCALE SQ SCH ×4 (08:00→20:35)
--- NOTE | 2017-07-23 08:34 | MB ---
cc: NANCY MARTIN DATE OF CONSULTATION: 07/23/2017 REASON FOR CONSULTATION: Bilateral ankle fractures. CONSULTING PHYSICIAN Dr. Peña. HISTORY Giovana is a 72-year-old female who has frequent falls. She fell a couple of weeks ago in [place] and had an injury to her right elbow. She underwent surgical open reduction, internal fixation at that time. The patient has been following up with Dr. Dyllan Jimenez regarding her elbow. She fell yesterday while trying to get up. She injured both ankles. She presented to the emergency room where x-rays revealed bilateral ankle fractures. She is currently awake and alert on the orthopedic floor. Her only complaints are bilateral ankles. She also complains of mild right elbow pain. Pain is worse with movement and is improved with rest. PAST MEDICAL HISTORY Illnesses: Diabetes. Hypertension. Renal failure. PAST SURGICAL HISTORY: 1. Appendectomy. 2. Cholecystectomy. 3. Colon resection. 4. Hysterectomy. 5. Cervical spine and breast reduction. MEDICATIONS: 1. Baclofen. 2. Pravastatin. 3. Trazodone. 4. Motrin. 5. Hydrochlorothiazide. 6. Metformin. 7. Prozac. ALLERGIES LISINOPRIL. FAMILY HISTORY: Family history is positive for lung cancer in her father. SOCIAL HISTORY The patient denies tobacco or drug use. She does drink alcohol occasionally. REVIEW OF SYSTEMS The patient denies headache, visual changes, neck pain, chest pain, shortness of breath, abdominal pain, nausea, vomiting or recent weight loss, numbness or tingling of the extremities. She complains of right arm pain and bilateral ankle pain. She has frequent falls at home and has poor balance. PHYSICAL EXAMINATION: The patient is a well-developed, well-nourished 72 year-old female. She is awake and alert. She is alert and oriented x3. Vital signs: Temperature 98.3, pulse 61, respirations 17, blood pressure 107/62, O2 sat 98% on room air. Head: The patient is normocephalic. Pupils are equal. Neck: Soft, nontender. Trachea is midline. Abdomen: Soft, nontender, nondistended. Extremities: Examination of right arm reveals no tenderness around her shoulder or wrist. She has intact sensation in all fingers. She has a surgical incision on the posterior arm. She is in a hinged elbow brace. Radial pulses palpable. Examination of left arm reveals no pain with shoulder, elbow or wrist motion. She has intact sensation in all fingers. She has good capillary refill in all fingers. Skin is intact. Radial pulses palpable. Examination of bilateral lower extremities reveals no pain with hip or knee motion. She is in well padded short leg splints. She has good capillary refill in all toes. She has intact sensation in her toes. X-RAYS X-rays of right ankle were reviewed. X-rays reveal nondisplaced right ankle fracture. There is no widening of the medial clear space. Syndesmosis is reduced. IMPRESSION 1. Frequent falls at home. 2. 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 3. Nondisplaced bilateral ankle fractures. PLAN Treatment options discussed with the patient. At this point I would recommend nonsurgical treatment. Fractures are in anatomical alignment. Patient is in a short leg splint. The patient states that she has already seen Dr. Jimenez regarding her elbow. She would prefer to follow up with him, since she is already known to him. All questions were ansered. She will need to follow up with Dr. Jimenez in approximately two weeks for repeat x-rays. She will be non-weightbearing on her ankles. She understands that if the fracture is displaced, she would need surgical intervention. She will likely need to go to a longterm facility as she will be non-weightbearing of both ankles. All questions were answered. A mid-level provider in my office, nurse practitioner or PA, may see this patient on a follow-up basis and continue to implement the objective of this plan including: Starting or adjusting medications, injections of muscle, tendon, bursa or joints, cast application, orthotic or brace application, physical therapy, further radiographic studies including x-ray, MRI, CT, ultrasounds or bone scan, vascular studies, neurologic studies, or other specialist consultations, and proceeding with surgical management as appropriate. MD ALBANIA Hernández/TOMEKA /7:15 AM /8:12 AM
[2017-07-23] MEDS: MULTIVITAMIN TAB PO SCH (10:05)
[2017-07-23] MEDS: HYDROCHLOROTHIAZIDE 25 MG TAB PO SCH (10:05)
[2017-07-23] MEDS: DOCUSATE SODIUM 50 MG/SENNA 8.6 MG TAB PO SCH ×2 (10:05→20:35)
[2017-07-23] MEDS: FLUoxetine HCL 20 MG CAP PO SCH (10:05)
[2017-07-23] MEDS: PRAVASTATIN SOD 20 MG TAB PO SCH (10:05)
[2017-07-23] MEDS: SODIUM CHLORIDE 0.9% FLUSH 10 ML FLUSH IV FLUSH SCH ×2 (10:06→20:34)
[2017-07-23] MEDS: SODIUM CHLOR 0.9% 1000 ML INJ 1,000 ML IV SCH ×2 (11:19→21:10)
[2017-07-23 12:00] VITALS: BP 115/65; PULSE 65; RESP 16; TEMP 97.3; O2SAT 97
[2017-07-23] MEDS ORDERED: DOCUSATE SODIUM 50 MG/SENNA 8.6 MG TAB PO PRN (12:30)
[2017-07-23] MEDS: ACETAMINOPHEN/HYDROcodone 325 MG/7.5 MG TAB PO PRN ×3 (14:38→23:21)
[2017-07-23 16:00] VITALS: BP 105/65; PULSE 63; RESP 16; TEMP 97.6; O2SAT 96
--- NOTE | 2017-07-23 16:20 | MG ---
cc: SHALINI PEREZ M.D. Lab No: Date: 07/23/2017 Age: 72 Sex: F Race: REQUESTING PHYSICIAN: Dr. Peña. HISTORY: An EEG was obtained on this 72-year-old patient awake and asleep with left and right arm twitching. DESCRIPTION OF THE RECORDING: The EEG is showing a mixture of theta with some delta rhythms bilaterally. There are beta rhythms centrally and frontally. There is limited alpha activity. Overall the background rhythms are fairly symmetrical with some shifting delta activity. Photic stimulation showed no change. INTERPRETATION: Abnormal EEG because of [id number] slowing bilaterally suggesting a diffuse disturbance of cerebral function. No epileptiform features present. MD BENJI Myers/KIESHA /4:03 PM /4:15 PM
--- NOTE | 2017-07-23 18:33 | HHI.PR ---
Subjective Remarks Mrs. Aden is doing well despite her misfortune of having two broken ankles on top of a previously broken right elbow. Her is concerned about her pattern of falls over the last year. Objective Vital Signs Date Time Temp Pulse Resp B/P (MAP) Pulse Ox O2 Delivery O2 Flow Rate FiO2 07/23/17 16:00 97.6 63 16 105/65 (78) 96 07/23/17 12:00 97.3 65 16 115/65 (82) 97 07/23/17 07:48 98.1 64 16 120/67 (84) 96 07/23/17 04:03 98.3 61 17 107/62 (77) 98 07/23/17 00:03 98.0 56 17 121/56 (77) 99 07/22/17 20:00 98.4 71 17 139/59 (85) 98 I/O 07/22/17 07/22/17 07/22/17 07/23/17 07/23/17 07/23/17 07:00 15:00 23:00 07:00 15:00 23:00 Intake Total 1000 ml 240 ml 120 ml 720 ml Output Total 1250 ml 350 ml 250 ml Balance 1000 ml -1010 ml -230 ml 470 ml Intake Oral 240 ml 120 ml 720 ml IV Total 1000 ml Output Urine Total 1250 ml 350 ml 250 ml # Voids 1 0 0 # Bowel Movements 0 0 1 Result Diagram: 07/23/17 0603 07/23/17 0608 Imaging Last Impressions Head CT 07/22/17 1155 Signed Impressions: Service Date/Time: Saturday, July 22, 2017 12:34 - CONCLUSION: 1. No acute infarct, acute hemorrhage, midline shift or extra-axial fluid collections. 2. Minimal periventricular white matter small vessel ischemic changes bilaterally. 3. Mild cerebral atrophy. 4. Left posterior parietal parafalcine calcified extra-axial mass is a 1.8 x 0.9 cm consistent with probable calcified meningioma. 5. Minimal mucosal thickening within the maxillary sinuses bilaterally. Moises Bee MD Foot X-Ray 07/22/17 0000 Signed Impressions: Service Date/Time: Saturday, July 22, 2017 14:00 - CONCLUSION: 1. Comminuted mildly displaced fractures of the fourth and fifth metatarsals, as above. Marco A Aguila MD Cervical Spine CT 07/22/17 0000 Signed Impressions: Service Date/Time: Saturday, July 22, 2017 12:34 - CONCLUSION: 1. No acute fracture or prevertebral soft tissue swelling. 2. Mild spinal stenosis and moderate bilateral foraminal narrowing at C6-7. 3. Moderate foraminal narrowing at C5-6, moderate left neural foraminal narrowing and mild right neural foraminal narrowing at C3-4, and mild bilateral foraminal narrowing at C4-5. 4. Diffuse cervical spondylosis as described above. Moises Bee MD Ankle X-Ray 07/22/17 0000 Signed Impressions: Service Date/Time: Saturday, July 22, 2017 21:10 - CONCLUSION: 1. Nondisplaced lateral malleolar fracture with overlying soft tissue swelling. Overlying cast. Alex Loya MD Objective Remarks GENERAL: Well-nourished, well-developed patient. SKIN: Warm and dry. HEAD: Normocephalic. EYES: No scleral icterus. No injection or drainage. NECK: Supple, trachea midline. No JVD or lymphadenopathy. CARDIOVASCULAR: Regular rate and rhythm without murmurs, gallops, or rubs. RESPIRATORY: Breath sounds equal bilaterally. No accessory muscle use. GASTROINTESTINAL: Abdomen soft, non-tender, nondistended. MUSCULOSKELETAL: Casts on her bilateral lower extremities, right elbow in an external lightweight cast frame. Assessment and Plan Problem List: (1) Bilateral ankle fractures ICD Codes: S82.891A - Other fracture of right lower leg, initial encounter for closed fracture; S82.892A - Other fracture of left lower leg, initial encounter for closed fracture (2) Chronic kidney disease ICD Codes: N18.9 - Chronic kidney disease, unspecified (3) Type 2 diabetes mellitus ICD Codes: E11.9 - Type 2 diabetes mellitus without complications (4) Multiple falls ICD Codes: R29.6 - Repeated falls Assessment and Plan Bilateral Ankle Fractures - Nondisplaced, ortho recommends conservative management (no surgery needed at this time) - Pain control is adequate Frequent Falls - No evidence of new stroke - Neurology consult to assist with further evaluation and work up Type 2 Diabetes - Fair control - Diabetic diet, sliding scale coverage Hypertension - Controlled DVT Prophylaxis - SQ Lovenox 40mg daily Discharge Planning - She will need a rehab discharge due to inability to walk - They are hoping she can get a bed in our inpatient rehab facility Felipe Junior MD Jul 23, 2017 18:33
--- NOTE | 2017-07-23 19:05 | MB ---
cc: SHALINI PEREZ M.D. DATE OF CONSULTATION: 07/23/2017. REASON FOR CONSULTATION: She is a 72-year-old woman seen in neurological consultation regards to recurrent falls. HISTORY OF PRESENT ILLNESS: The patient had a fall about three weeks ago and fractured the right elbow treated with intervention and plates and she had another couple of falls a couple of days ago leading to bilateral ankle fractures. On this recent event, the patient apparently had the first fall and no obvious reason for that but the assisted her. She may have had a concussion then, and then just a very short while after that, she had another fall that was not associated with any overt loss of consciousness but she then fractured both ankles. She has been having some twitching of the hands, especially in the morning lately, and this has been going on for about six months or so. She does not lose consciousness and there have been no seizures. She may loose or drop objects with her hands as well. She has a history of hypertension and diabetes but no stroke. No seizures, TIAs. MEDICATIONS: 1. Prozac. 2. Metformin. 3. Hydrochlorothiazide. 4. Motrin. 5. Trazodone. 6. Pravastatin. 7. Baclofen. SOCIAL HISTORY: Only occasional alcohol. NEUROLOGIC EXAMINATION: Shows that she is alert, oriented and mentation appeared to be appropriate. The is at bedside. Ocular movements and visual costello were full. No facial weakness. Speech is clear. The right arm is in a sling and she has fairly good competitive shopper though mildly weak and the left arm is strong in all motor functions. Left arm [id number] testing normal. She is able to raise both legs while laying in bed and she has immobilization of both legs distal to the knees but she is able to wiggle the toes strongly. I observed 1+ knee reflexes and also present left elbow reflex. ANCILLARY DATA: WBC 5.1, hemoglobin 10.3, platelets 153,000. Sodium 140, potassium 3.2, BUN yesterday was 25, creatinine 1.4, glucose was 222. ASSESSMENT: Recurrent falls, no apparent reason for such falls. She is also having some hand twitching in the morning almost resembling myoclonus. Unclear if she might have had a very brief loss of consciousness with these jerking movements to explain her falls. The EEG was non-epileptiform but showed bilateral slowing. The CT brain is essentially negative except for a left posterior parietal para-falcine mass probably a meningioma, 1.8 x 0.9 cm. When feasible, we will need to obtain an MRI brain and cervical spine. She did have a cervical spine CT showing no obvious myelopathy. I am going to check additional labs, B12, CPK and RPR. I might do a followup EEG and she might need a trial with Depakote as well. She mostly will need neurology outpatient follow-up after she is finished with rehab from her orthopedic management. Thank you for asking us to assist in her care. MD BENJI Myers/KIESHA /6:08 PM /6:52 PM
[2017-07-23 20:05] VITALS: BP 130/62; PULSE 60; RESP 17; TEMP 97.6; O2SAT 98
[2017-07-23] MEDS: ENOXAPARIN SODIUM 40 MG/0.4 ML SYRINGE SQ SCH (20:34)
[2017-07-23 21:25] LABS: CREATINE KINASE 130 U/L (26-192)
[2017-07-24 00:01] VITALS: BP 120/59; PULSE 60; RESP 17; TEMP 98.2; O2SAT 98
[2017-07-24] MEDS: ACETAMINOPHEN/HYDROcodone 325 MG/7.5 MG TAB PO PRN ×5 (03:38→23:01)
[2017-07-24] MEDS: SODIUM CHLOR 0.9% 1000 ML INJ 1,000 ML IV SCH ×2 (06:00→17:19)
[2017-07-24] MEDS: FLUoxetine HCL 20 MG CAP PO SCH (07:31)
[2017-07-24] MEDS: MULTIVITAMIN TAB PO SCH (07:31)
[2017-07-24] MEDS: PRAVASTATIN SOD 20 MG TAB PO SCH (07:31)
[2017-07-24] MEDS: DOCUSATE SODIUM 50 MG/SENNA 8.6 MG TAB PO SCH ×2 (07:32→23:00)
[2017-07-24] MEDS: HYDROCHLOROTHIAZIDE 25 MG TAB PO SCH (07:32)
[2017-07-24] MEDS: INSULIN ASPART SUPPLEMENTAL SCALE SQ SCH ×4 (07:44→21:00)
[2017-07-24 07:54] VITALS: BP 138/90; PULSE 59; RESP 17; TEMP 97.3; O2SAT 99
[2017-07-24] MEDS: SODIUM CHLORIDE 0.9% FLUSH 10 ML FLUSH IV FLUSH SCH ×2 (09:00→23:02)
[2017-07-24 12:00] VITALS: BP_SYST 125; BP_SYST 96; BP_DIAS 63; BP_DIAS 64; PULSE 61; RESP 17; TEMP 98.2; O2SAT 98
[2017-07-24 16:00] VITALS: BP 135/68; PULSE 70; RESP 17; TEMP 97.2; O2SAT 96
--- NOTE | 2017-07-24 19:09 | HHI.PR ---
Subjective Remarks Mrs. Aden required a slight titration of her Garner from 5mg to 7.5mg. She is more comfortable today. Objective Vital Signs Date Time Temp Pulse Resp B/P (MAP) Pulse Ox O2 Delivery O2 Flow Rate FiO2 07/24/17 16:00 97.2 70 17 135/68 (90) 96 07/24/17 12:00 98.2 61 17 125/63 (83) 98 07/24/17 07:54 97.3 59 17 138/90 (106) 99 07/24/17 04:31 17 07/24/17 00:01 98.2 60 17 120/59 (79) 98 07/23/17 21:54 Room Air 07/23/17 20:05 97.6 60 17 130/62 (84) 98 I/O 07/23/17 07/23/17 07/23/17 07/24/17 07/24/17 07/24/17 07:00 15:00 23:00 07:00 15:00 23:00 Intake Total 120 ml 720 ml 360 ml 240 ml Output Total 350 ml 250 ml 400 ml 400 ml 275 ml Balance -230 ml 470 ml -40 ml -160 ml -275 ml Intake Oral 120 ml 720 ml 360 ml 240 ml Output Urine Total 350 ml 250 ml 400 ml 400 ml 275 ml # Voids 0 # Bowel Movements 0 1 0 0 Result Diagram: 07/23/17 0603 07/23/17 0608 Objective Remarks GENERAL: Well-nourished, well-developed patient. SKIN: Warm and dry. HEAD: Normocephalic. EYES: No scleral icterus. No injection or drainage. NECK: Supple, trachea midline. No JVD or lymphadenopathy. CARDIOVASCULAR: Regular rate and rhythm without murmurs, gallops, or rubs. RESPIRATORY: Breath sounds equal bilaterally. No accessory muscle use. GASTROINTESTINAL: Abdomen soft, non-tender, nondistended. MUSCULOSKELETAL: Casts on her bilateral lower extremities, right elbow in an external lightweight cast frame. Assessment and Plan Problem List: (1) Bilateral ankle fractures ICD Codes: S82.891A - Other fracture of right lower leg, initial encounter for closed fracture; S82.892A - Other fracture of left lower leg, initial encounter for closed fracture (2) Chronic kidney disease ICD Codes: N18.9 - Chronic kidney disease, unspecified (3) Type 2 diabetes mellitus ICD Codes: E11.9 - Type 2 diabetes mellitus without complications (4) Multiple falls ICD Codes: R29.6 - Repeated falls Assessment and Plan Bilateral Ankle Fractures - Nondisplaced, ortho recommends conservative management (no surgery needed at this time) - Pain control is adequate Frequent Falls - No evidence of new stroke - Neurology ordered B12, RPR, CPK - EEG showed some slowing, but otherwise normal - MRI cannot be done due to external metal cast on fractured elbow Type 2 Diabetes - Fair control - Diabetic diet, sliding scale coverage Hypertension - Controlled DVT Prophylaxis - SQ Lovenox 40mg daily Discharge Planning - Discharge to [facility] inpatient rehab on Monday Felipe Junior MD Jul 24, 2017 19:09
[2017-07-24 20:00] VITALS: BP 144/76; PULSE 63; RESP 20; TEMP 99.3; O2SAT 97
[2017-07-24] MEDS: ENOXAPARIN SODIUM 40 MG/0.4 ML SYRINGE SQ SCH (23:00)
[2017-07-25] VITALS: BP 146/80; PULSE 61; RESP 22; TEMP 99.1; O2SAT 95
[2017-07-25] MEDS: SODIUM CHLOR 0.9% 1000 ML INJ 1,000 ML IV SCH (03:19)
[2017-07-25 04:00] VITALS: BP 154/88; PULSE 70; RESP 20; TEMP 98.9; O2SAT 97
[2017-07-25] MEDS: DOCUSATE SODIUM 50 MG/SENNA 8.6 MG TAB PO SCH (07:53)
[2017-07-25] MEDS: MULTIVITAMIN TAB PO SCH (07:53)
[2017-07-25] MEDS: PRAVASTATIN SOD 20 MG TAB PO SCH (07:53)
[2017-07-25] MEDS: HYDROCHLOROTHIAZIDE 25 MG TAB PO SCH (07:54)
[2017-07-25] MEDS: FLUoxetine HCL 20 MG CAP PO SCH (07:54)
[2017-07-25 08:00] VITALS: BP 148/70; PULSE 72; RESP 18; TEMP 98.3; O2SAT 97
[2017-07-25] MEDS: INSULIN ASPART SUPPLEMENTAL SCALE SQ SCH ×2 (08:00→12:00)
[2017-07-25] MEDS: SODIUM CHLORIDE 0.9% FLUSH 10 ML FLUSH IV FLUSH SCH (09:00)
--- NOTE | 2017-07-25 09:50 | PD.ORT.PN ---
Subjective Subjective Remarks Resting confluent with no new complaints. Is planning on going to rehabilitation today Objective Vitals Vital Signs Date Time Temp Pulse Resp B/P (MAP) Pulse Ox O2 Delivery O2 Flow Rate FiO2 07/25/17 08:00 98.3 72 18 148/70 (96) 97 07/25/17 04:00 98.9 70 20 154/88 (110) 97 07/25/17 02:00 Room Air 07/25/17 00:00 99.1 61 22 146/80 (102) 95 07/24/17 20:00 99.3 63 20 144/76 (98) 97 07/24/17 16:00 97.2 70 17 135/68 (90) 96 07/24/17 12:00 98.2 61 17 125/63 (83) 98 I/O 07/24/17 07/24/17 07/24/17 07/25/17 07/25/17 07/25/17 07:00 15:00 23:00 07:00 15:00 23:00 Intake Total 240 ml Output Total 400 ml 275 ml 650 ml Balance -160 ml -275 ml -650 ml Intake Oral 240 ml Output Urine Total 400 ml 275 ml 650 ml # Bowel Movements 0 Result Diagram: 07/23/17 0603 07/23/17 0608 Imaging Last [address] 07/22/17 1155 Signed Impressions: Service Date/Time: Saturday, July 22, 2017 12:34 - CONCLUSION: 1. No acute infarct, acute hemorrhage, midline shift or extra-axial fluid collections. 2. Minimal periventricular white matter small vessel ischemic changes bilaterally. 3. Mild cerebral atrophy. 4. Left posterior parietal parafalcine calcified extra-axial mass is a 1.8 x 0.9 cm consistent with probable calcified meningioma. 5. Minimal mucosal thickening within the maxillary sinuses bilaterally. Moises Bee MD Foot X-Ray 07/22/17 0000 Signed Impressions: Service Date/Time: Saturday, July 22, 2017 14:00 - CONCLUSION: 1. Comminuted mildly displaced fractures of the fourth and fifth metatarsals, as above. Marco A Aguila MD Cervical Spine CT 07/22/17 0000 Signed Impressions: Service Date/Time: Saturday, July 22, 2017 12:34 - CONCLUSION: 1. No acute fracture or prevertebral soft tissue swelling. 2. Mild spinal stenosis and moderate bilateral foraminal narrowing at C6-7. 3. Moderate foraminal narrowing at C5-6, moderate left neural foraminal narrowing and mild right neural foraminal narrowing at C3-4, and mild bilateral foraminal narrowing at C4-5. 4. Diffuse cervical spondylosis as described above. Moises Bee MD Ankle X-Ray 07/22/17 0000 Signed Impressions: Service Date/Time: Saturday, July 22, 2017 21:10 - CONCLUSION: 1. Nondisplaced lateral malleolar fracture with overlying soft tissue swelling. Overlying cast. Alex Loya MD Ankle X-Ray 07/22/17 0000 Signed Impressions: Service Date/Time: Saturday, July 22, 2017 21:18 - CONCLUSION: 1. Cast overlying relatively nondisplaced fracture of medial malleolus. Ankle mortise intact. Alex Loya MD Ankle X-Ray 07/22/17 0000 Signed Impressions: Service Date/Time: Saturday, July 22, 2017 12:46 - CONCLUSION: 1. Minimally displaced lateral malleolar fracture. Marco A Aguila MD Ankle X-Ray 07/22/17 0000 Signed Impressions: Service Date/Time: Saturday, July 22, 2017 12:49 - CONCLUSION: 1. Nondisplaced medial malleolar fracture, as above. Marco A Aguila MD Last [address] 07/22/17 1155 Signed Impressions: Service Date/Time: Saturday, July 22, 2017 12:34 - CONCLUSION: 1. No acute infarct, acute hemorrhage, midline shift or extra-axial fluid collections. 2. Minimal periventricular white matter small vessel ischemic changes bilaterally. 3. Mild cerebral atrophy. 4. Left posterior parietal parafalcine calcified extra-axial mass is a 1.8 x 0.9 cm consistent with probable calcified meningioma. 5. Minimal mucosal thickening within the maxillary sinuses bilaterally. Moises Bee MD Objective Remarks Right upper extremity: Clean dry dressings intact with range of motion elbow brace and place. Distally intact sensation. She flexion of all fingers. Right lower extremity: No pain with hip or knee range of motion. Short leg splint in place intact sensation distally in all toes with good capillary refills Left lower extremity: No pain with hip or knee range of motion. Short leg splint place with intact sensation in all toes. Some tenderness with movement over fourth and fifth toes. Assessment & Plan Assessment and Plan Previous elbow fracture with surgery - nonweightbearing in range of motion elbow brace Right distal fibula fracture minimally displaced - maintain splint and nonweightbearing right lower extremity Left medial malleolus fracture nondisplaced, left fourth and fifth metatarsal fractures - conservative measures maintain splint nonweightbearing left lower extremity Due to nonweightbearing status on 3 extremities physical therapy will work on bed to chair transfers. Discharge to rehabilitation Follow-up x-rays in 10-14 days need to be obtained to evaluate ankle and foot fractures. She may follow-up with Dr. Jimenez for bilateral ankles since she is already being managed by him for her elbow Rene Mendez Jr. Jul 25, 2017 09:50
[2017-07-25] MEDS ORDERED: WHEEMIS3 (09:52)
[2017-07-25] MEDS ORDERED: METF500T PO (10:25)
[2017-07-25] MEDS ORDERED: PERI PO (10:25)
[2017-07-25] MEDS ORDERED: ENOX40P SQ (10:25)
[2017-07-25] MEDS ORDERED: HYDR-3580 PO (10:25)
[2017-07-25] MEDS ORDERED: PROZ20CA11 PO (10:25)
[2017-07-25] MEDS ORDERED: NOVOLOGSS SQ (10:25)
[2017-07-25] MEDS ORDERED: BENA25CA4 PO (10:25)
[2017-07-25] MEDS ORDERED: HYDR25TA5 PO (10:25)
--- NOTE | 2017-07-25 10:30 | HHI.DS ---
Discharge Summary Admission Date Jul 22, 2017 at 14:38 Discharge Date: Jul 25, 2017 Admitting Diagnosis Altered Mental Status, Bialteral Ankle fractures. (1) Multiple falls ICD Code: R29.6 - Repeated falls (2) Bilateral ankle fractures ICD Code: S82.891A - Other fracture of right lower leg, initial encounter for closed fracture; S82.892A - Other fracture of left lower leg, initial encounter for closed fracture (3) Type 2 diabetes mellitus ICD Code: E11.9 - Type 2 diabetes mellitus without complications (4) Hypokalemia ICD Code: E87.6 - Hypokalemia (5) Chronic kidney disease ICD Code: N18.9 - Chronic kidney disease, unspecified (6) Hypertension ICD Code: I10 - Essential (primary) hypertension Procedures none Brief History - From Admission Written by Earnestine Verde, acting as scribe for Dr. Peña on 07/22/17 at 15:09. Mrs. Aden is a 72-year-old female patient with a known medical history of DM and hypertension who presented to the ED after frequent falls at home. Patient reports that she fell a couple weeks ago in [place] after tripping in some grass , she injured her right elbow and underwent surgical intervention with a current brace in place. States she has been weak since her fall a couple weeks back and her has been assisting her with her ADLs. Patient states that this morning she also fell after trying to get up out of bed alone. It is unclear if she slipped or if her legs gave out on her. Her helped her to her feet and she then again fell while in the bathroom. She does remember hitting her head. Denies any LOC. She has been having some jerking and tremors lately with some confusion and also frequently dropping things. Denies any associated dizziness, lightheadedness, blurry vision, diplopia, headaches, one- sided weakness or seizures. Denies any recent illness including fever, chills, shortness of breath, abdominal pain, nausea, vomiting, diarrhea or dysuria. PCP is Dr. Cárdenas. CBC/BMP: 07/23/17 0603 07/23/17 0608 Significant Findings Laboratory Tests Test 07/22/17 12:30 07/22/17 13:30 07/22/17 15:50 07/23/17 06:03 Hemoglobin 11.0 GM/DL (11.6-15.3) 10.3 GM/DL (11.6-15.3) Hematocrit 34.5 % (35.0-46.0) 31.5 % (35.0-46.0) Mean Corpuscular Volume 79.4 FL (80.0-100.0) Mean Corpuscular Hemoglobin 25.4 PG (27.0-34.0) 26.5 PG (27.0-34.0) Neutrophils (%) (Auto) 71.2 % (16.0-70.0) Lymphocytes # (Auto) 0.9 TH/MM3 (1.0-4.8) Activated Partial Thromboplast Time 22.4 SEC (24.3-30.1) Blood Urea Nitrogen 25 MG/DL (7-18) Creatinine 1.40 MG/DL (0.50-1.00) Random Glucose 222 MG/DL (74-106) Albumin 3.3 GM/DL (3.4-5.0) Potassium Level 3.3 MEQ/L (3.5-5.1) Estimat Glomerular Filtration Rate 37 ML/MIN (>89) Troponin I LESS THAN 0.02 NG/ML Red Blood Count 3.91 MIL/MM3 (4.00-5.30) Test 07/23/17 06:08 07/24/17 04:07 Creatinine 1.04 MG/DL (0.50-1.00) Random Glucose 215 MG/DL (74-106) Calcium Level 8.3 MG/DL (8.5-10.1) Potassium Level 3.2 MEQ/L (3.5-5.1) Chloride Level 108 MEQ/L (98-107) Estimat Glomerular Filtration Rate 52 ML/MIN (>89) Hospital Course Bilateral ankle fractures were casted, no surgery needed. Patient had a 3 night stay and qualified for inpatient rehab at [facility]. Pt Condition on Discharge: Fair Discharge Disposition: Rehab Inpatient Discharge Time: > 30 minutes Discharge Instructions DIET: Follow Instructions for: Diabetic Diet Speech Therapy-Diet Recommends: Regular Activities you can perform: Non Weight Bearing Felipe Junior MD Jul 25, 2017 10:30
[2017-07-25 11:44] VITALS: BP 139/69; PULSE 68; RESP 18; TEMP 98.9; O2SAT 96
== END 2017-07-25 13:58 | DRG 563 ==
LOC: PHED 11:51 → PHEDA 14:38 → N06A 18:31
PROVIDERS: ADMIT Family Medicine; ATTEND Family Medicine
PROC: 2W3RX1Z Immobilization of Left Lower Leg using Splint (ICD-10-PCS; principal; 2017-07-22)
PROC: 2W3QX1Z Immobilization of Right Lower Leg using Splint (ICD-10-PCS; 2017-07-22)
DX: S82.55XA Nondisplaced fracture of medial malleolus of left tibia, initial encounter for closed fracture (principal); E11.22 Type 2 diabetes mellitus with diabetic chronic kidney disease; N18.3 Chronic kidney disease, stage 3 (moderate); S82.61XA Displaced fracture of lateral malleolus of right fibula, initial encounter for closed fracture; S92.342A Displaced fracture of fourth metatarsal bone, left foot, initial encounter for closed fracture; S92.352A Displaced fracture of fifth metatarsal bone, left foot, initial encounter for closed fracture; W18.30XA Fall on same level, unspecified, initial encounter; Y92.009 Unspecified place in unspecified non-institutional (private) residence as the place of occurrence of the external cause; S42.401D Unspecified fracture of lower end of right humerus, subsequent encounter for fracture with routine healing; R41.82 Altered mental status, unspecified; I12.9 Hypertensive chronic kidney disease with stage 1 through stage 4 chronic kidney disease, or unspecified chronic kidney disease; Z79.84 Long term (current) use of oral hypoglycemic drugs; M81.0 Age-related osteoporosis without current pathological fracture; D32.9 Benign neoplasm of meninges, unspecified; Z91.81 History of falling
CPT/HCPCS: 51702; 70450; 72125; 73610; 73630; 80048; 80053; 80307; 81001; 82550; 82607; 82652; 82948; 84443; 84484; 85025; 85610; 85730; 86592; 93005; 94150; 95819; 96360; J1650; J1815; J2270; J2405; J7030